=== PATIENT | male | born 1995 | race Caucasian/White ===

== ENCOUNTER 2017-01-10 12:20 | Emergency (ER) | payer BC ==
[2017-01-10 12:27] VITALS: TEMP 98.1
--- NOTE | 2017-01-10 12:55 | EDPHY ---
H & P Stated Complaint: Cough,congested, subjective fever x 3 days Time Seen by Provider: 01/10/17 12:54 HPI/ROS: CHIEF COMPLAINT: Cough, vomiting, history of bronchitis HISTORY OF PRESENT ILLNESS: The patient presents to the ED with a several day history of a sore throat, subjective fever, mild cough and vomiting. The patient's symptoms began on Tuesday. The patient reports he does typically gets bronchitis once a year. He typically manages the symptoms with albuterol. He has not been using that therapy during the course of this illness. The patient states that his symptoms are primarily sore throat and vomiting. The patient states his cough has been minimal. The patient denies any additional complaints of acute abdominal pain, vomiting or diarrhea. REVIEW OF SYSTEMS: A comprehensive 10 point review of systems is otherwise negative aside from elements mentioned in the history of present illness. Source: Patient Exam Limitations: No limitations - Personal History Current Tetanus Diphtheria and Acellular Pertussis (TDAP): Yes - Medical/Surgical History Other PMH: "prone to bronchitis" - Social History Smoking Status: Never smoked - Physical Exam Exam: General Appearance: Alert, no distress Eyes: Pupils equal and round no pallor or injection ENT, Mouth: Pharyngeal erythema noted Respiratory: There are no retractions, lungs are clear to auscultation Cardiovascular: Regular rate and rhythm Gastrointestinal: Abdomen is soft and nontender, no masses, bowel sounds normal Neurological: A&O, normal motor function, normal sensory exam, normal cranial nerves Skin: Warm and dry, no rashes Musculoskeletal: Neck is supple nontender Extremities: symmetrical, full range of motion Constitutional: Initial Vital Signs Temperature (C) 36.7 C 01/10/17 12:25 Heart Rate 64 01/10/17 12:25 Respiratory Rate 16 01/10/17 12:25 Blood Pressure 109/85 H 01/10/17 12:25 O2 Sat (%) 98 01/10/17 12:25 O2 Delivery Mode Room Air Allergies/Adverse Reactions: No Known Allergies Allergy (Unverified 01/10/17 12:24) Home Medications: Medication Instructions Recorded Albuterol [Ventolin Hfa Inhaler] 2 puffs IH QID PRN #1 mdi 01/10/17 Ondansetron Odt [Zofran Odt] 4 mg PO Q4PRN PRN #20 tab 01/10/17 Medical Decision Making ED Course/Re-evaluation: The patient's vital signs are stable. He presents to the emergency department with cough, vomiting and sore throat consistent with a viral is anthem. The patient has no clinical evidence of pneumonia. There is no indication for antibiotics at this point time. The patient will be discharged home with a prescription for an inhaler and also given a antinausea medication. The patient will be given customary aftercare instructions and return precautions. Differential Diagnosis: Differential diagnosis considered includes asthma, bronchitis, pneumonia, strep pharyngitis - Data Points Laboratory Results: 01/10/17 01/10/17 Unknown Unknown Group A Strep Screen NEGATIVE (NEGATIVE) Group A Strep DNA Pending Departure - Departure Disposition: Home, Routine, Self-Care Clinical Impression: Acute bronchitis Condition: Good Instructions: Acute Bronchitis (ED) Additional Instructions: 1. Zofran as needed for nausea 2. Albuterol as needed for cough 3. Tylenol and Motrin as needed for pain and fever 4. Return to the ED for any worsening symptoms or other concerns. Prescriptions: Albuterol [Ventolin Hfa Inhaler] 2 puffs IH QID PRN #1 mdi PRN Reason: for shortness of breath Ondansetron Odt [Zofran Odt] 4 mg PO Q4PRN PRN #20 tab PRN Reason: For Nausea
[2017-01-10 13:56] VITALS: BP 119/72; PULSE 70; RESP 18; O2SAT 97
== END 2017-01-10 13:54 | disposition home or self-care (01) ==
DX: J20.9 Acute bronchitis, unspecified (principal)

== ENCOUNTER 2017-05-06 23:43 | Emergency (ER) | payer BC ==
--- NOTE | 2017-05-06 23:47 | EDPHY ---
H & P HPI/ROS: HPI CHIEF COMPLAINT: Sore throat x1 week. HISTORY OF PRESENT ILLNESS: Patient very pleasant 21-year-old male, otherwise healthy no significant medical history does not take any daily medications presents emergency room with sore throat x1 week. He states in [place] he was seen by physician diagnosed with a viral pharyngitis. However he continue have sore throat. Subjective fever. No nausea no vomiting no diarrhea denies chest pain or shortness of breath denies productive cough. Denies muscle aches and joint pain. Denies stiff neck or change in phonation denies hot potato voice, denies trouble swallowing. Past Medical History: No significant medical history Past Surgical History: No significant surgical history Social History: Denies daily use drugs alcohol tobacco products. Family History: Noncontributory ROS REVIEW OF SYSTEMS: A comprehensive 10 point review of systems is otherwise negative aside from elements mentioned in the history of present illness. Exam Constitutional appears well nontoxic, triage nursing summary reviewed, vital signs reviewed, awake/alert. Eyes normal conjunctivae and sclera, EOMI, PERRLA. HENT TMs clear bilaterally, posterior pharynx erythematous uvula midline, no significant swelling to the tonsillar bed, no exudate,, moist mucus membranes, no epistaxis, neck supple/ no meningismus, no raccoon eyes. Respiratory clear to auscultation bilaterally, normal breath sounds, no respiratory distress, no wheezing. Cardiovascular rate normal, regular rhythm, no murmur, no edema, distal pulses normal. Gastrointestinal soft, non-tender, no rebound, no guarding, normal bowel sounds, no distension, no pulsatile mass. Genitourinary no CVA tenderness. Musculoskeletal no midline vertebral tenderness, full range of motion, no calf swelling, no tenderness of extremities, no meningismus, good pulses, neurovascularly intact. Skin pink, warm, & dry, no rash, skin atraumatic. Neurologic awake, alert and oriented x 3, AAOx3, moves all 4 extremities equally, motor intact, sensory intact, CN II-XII intact, normal cerebellar, normal vision, normal speech. Psychiatric normal mood/affect. Heme/Lymph/Immune no lymphadenopathy. Differential Diagnosis: Includes but is not limited to in a particular order viral pharyngitis, strep pharyngitis, mono Medical Decision Making: Plan for this patient rapid strep. Decadron 8 mg p.o. ibuprofen 800 mg p. o. for pain control. Will start azithromycin as patient has persistent symptoms in his posterior pharynx is deeply erythematous. Concerning for strep. Prescription given for azithromycin, Decadron, ibuprofen. Return precautions discussed with patient return to the emergency room if worsening fever, sore throat or any questions or concerns. Source: Patient - Medical/Surgical History Other PMH: "prone to bronchitis" - Social History Smoking Status: Never smoked Constitutional: Initial Vital Signs Temperature (C) 36.5 C 05/06/17 23:46 Heart Rate 75 05/06/17 23:46 Respiratory Rate 16 05/06/17 23:46 Blood Pressure 135/81 H 05/06/17 23:46 O2 Sat (%) 96 05/06/17 23:46 O2 Delivery Mode Room Air Allergies/Adverse Reactions: No Known Allergies Allergy (Unverified 01/10/17 12:24) Home Medications: Medication Instructions Recorded Albuterol [Ventolin Hfa Inhaler] 2 puffs IH QID PRN #1 mdi 01/10/17 AZITHROMYCIN [Z-PACK] 250 mg PO DAILY #6 tab 05/07/17 Dexamethasone [Decadron 4 MG (*)] 4 mg PO DAILY #4 tab 05/07/17 Ibuprofen [Motrin (*)] 800 mg PO Q6-8PRN #7 tab 05/07/17 Departure - Departure Disposition: Home, Routine, Self-Care Clinical Impression: Pharyngitis Qualifiers: Pharyngitis/tonsillitis etiology: unspecified etiology Qualified Code(s): J02.9 - Acute pharyngitis, unspecified Condition: Good Instructions: Pharyngitis (ED), Strep Throat (ED) Additional Instructions: 1. Drink lots of fluids stay well-hydrated. 2. Take ibuprofen for pain control. 3. Decadron for pain control 4. Azithromycin as prescribed. Prescriptions: AZITHROMYCIN [Z-PACK] 250 mg PO DAILY #6 tab Dexamethasone [Decadron 4 MG (*)] 4 mg PO DAILY #4 tab Ibuprofen [Motrin (*)] 800 mg PO Q6-8PRN #7 tab
[2017-05-06 23:50] VITALS: BP 135/81; PULSE 75; RESP 16; TEMP 97.7; O2SAT 96
[2017-05-07] MEDS ORDERED: IBUPROFEN 800 MG TAB PO ONE
[2017-05-07] MEDS ORDERED: DEXAMETHASONE 4 MG TAB PO ONE
[2017-05-07] MEDS ORDERED: AZITHROMYCIN 250 MG TAB PO ONE (00:01)
== END 2017-05-07 00:38 | disposition home or self-care (01) ==
DX: J02.9 Acute pharyngitis, unspecified (principal)

== ENCOUNTER 2018-07-01 02:15 | Emergency (ER) | payer BC | END 2018-07-01 04:46 | disposition home or self-care (01) ==

== ENCOUNTER → 2018-08-25 | Outpatient (CLI) | payer OTHER | LOC: FIMAGING 09:56 | DX: N64.52 Nipple discharge (principal) ==

== ENCOUNTER → 2018-09-12 | Outpatient (CLI) | payer OTHER | LOC: FIMAGING 11:00 | DX: N64.52 Nipple discharge (principal); R92.0 Mammographic microcalcification found on diagnostic imaging of breast ==